=== PATIENT | female | born 1990 | race Caucasian/White ===

== ENCOUNTER 2016-12-29 09:31 | Observation (INO) ==
[2016-12-29] MEDS ORDERED: SODIUM CHLORIDE 0.9% 500 ML IV STA (11:20)
[2016-12-29 11:26] LABS: Basophils # 0.1 10*3/uL (0.0-0.2); Basophils % 0.7 % (0.0-0.8); Eosinophils # 0.1 10*3/uL (0.0-0.87); Eosinophils % 0.7 % (0.00-10.9); Hematocrit 40.1 VOL% (35.7-47.0); Hemoglobin 13.9 GM/DL (12.0-16.0); Immature Granulocytes % 0.3 %; Immature Granulocytes Absolute 0.02 #; Lymphocytes # 1.7 10*3/uL (1.4-4.0); Mean Corpuscular HGB Conc 34.7 GM/DL (32-36); Mean Corpuscular Hemoglobin 29 PG (27-34); Mean Platelet Volume 10.7 FL (9.6-12.0); Monocytes # 0.6 10*3/uL (0.11-0.8); Monocytes % 7.6 % (1.7-12.7); Neutrophils % 67.7 % (38.7-73.9); Platelet Count 263 T/CUMM (130-400); Red Blood Count 4.72 MC/CUMM (3.8-5.5); White Blood Count 7.4 T/CUMM (4-12)
[2016-12-29 11:43] LABS: Apearance,Urine Slightly Hazy (Clear); Bacteria,Urine Occasional /HPF (Few); Bilirubin,Urine Negative (Negative); Blood, Urine Negative (Negative); Glucose,Urine (UA) Negative (Negative); Hyaline Casts,Urine 1 /LPF (0-3); Ketones,Urine Negative (Negative); Mucus,Urine Few /LPF (Occasional); Nitrite,Urine Negative (Negative); Protein,Urine Negative; RBC,Urine 6 /HPF (0-4); Squamous Epithelial Cell,Urine Occasional /HPF (0-10); Urine Color Yellow (Yellow); Urine Specific Gravity 1.025 (1.001-1.035); WBC,Urine 4 /HPF (0-6)
--- NOTE | 2016-12-29 11:44 | Emergency Department Note ---
IEleuterio Emily, am scribing for, and in the presence of, Kwadwo Steel MD 11: 00. Milvia Thomas Charles R, MD, personally performed the services described in this documentation, ascribed by Luzma Mcclellan in my presence, and it is both accurate and complete . Arrival - Arrival Chief Complaint: Syncope Stated Complaint: Weakness, sweating, paleness, loss of hearing, ED Nursing Triage Note: PT C/O NEAR SYNCOPAL EPISODE. STATES BECAME WEAK, DIAPHORETIC, AND PALE WHILE TAKING A SHOWER THIS AM BUT IMPROVED AFTER EATING BREAKFAST. THEN HAPPENED AGAIN WHILE SCRUBBED IN FOR SURGERY AT APPROX 0920. ACCU CHECK AT TRIAGE 99MG/DL Mode of Arrival: Wheelchair Limitations: No Limitations Source: Patient Time Seen by Provider: 12/29/16 10:44 - History of Present Illness HPI Narrative: Pt is a 26 y/o female who came to ED with c/o 2 near syncopal episodes that started this morning. Pt reports scrubbing in for surgery this morning and felt dizziness, weakness, loss of hearing, cold sweat, and pale, but resolved on its own. She notes taking a shower this morning with the same sxs but resolved during breakfast. Pt's accu check was 99 and BP is nml. She denies any sxs at the moment, but has dizziness when standing. Onset (ago): hour(s) Consistency: intermittent Severity: mild, moderate Severity scale (1-10): 4 Quality: other (dizziness) Date of Last Menstrual Period: 12/13/16 Allergies/Adverse Reactions: Allergies Allergy/AdvReac Type Severity Reaction Status Date / Time latex Allergy RASH Verified 12/29/16 09:45 Review of System - Review of System 12 point system: reviewed and no additional remarkable complaints except as stated - Review of System Constitutional: Present: diaphoresis (with episode). Absent: chills, fever Head/Ears/Nose/Throat: Absent: nasal drainage Respiratory: Absent: cough, respiratory distress Cardiovascular: Absent: chest pain, syncope (near syncope) Gastrointestinal: Absent: abdominal pain, nausea, vomiting Skin: Absent: rash Neurological: Present: weakness, other (dizziness). Absent: numbness, paresthesias, abnormal gait (unsteady balance) Medical,Surgical,& Family Hx - Medical History Psychological: History of: Anxiety Disorders, Depression - Surgical History Surgical History: noncontributory - Family History Family History: noncontributory - Social History Smoking Status: Never smoker Frequency of Alcohol Use: None Type of Drug Use: None Marital Status: Single Lives With:: Alone Functional capacity: independent ambulation Exam Vital Signs: Vital Signs Temperature 97.4 F L 12/29/16 09:39 Pulse Rate 74 12/29/16 14:15 Respiratory Rate 16 12/29/16 14:15 Blood Pressure 107/77 12/29/16 14:15 O2 Sat by Pulse Oximetry 100 12/29/16 14:15 - General General appearance: alert, in no apparent distress - Head Head exam: Present: atraumatic, normocephalic - Eye Eye exam: Present: EOMI, nystagmus - ENT ENT exam: Present: mucous membranes moist. Absent: mucous membranes dry - Neck Neck exam: Present: full ROM - Chest Chest inspection: Present: symmetric chest wall rise - Respiratory Respiratory exam: Present: normal lung sounds bilaterally. Absent: respiratory distress - Cardiovascular Cardiovascular exam: Present: regular rate, normal rhythm, normal heart sounds - Extremities Exam Extremities exam: Present: full ROM. Absent: pedal edema - Neurological Exam Neurological exam: Present: alert, oriented X3, CN II-XII intact, other ( reproducible dizziness when standing). Absent: motor sensory deficit - Psychiatric Psychiatric exam: Present: normal affect, normal mood - Skin Skin exam: Present: warm, dry Course - Reevaluation(s) Reevaluation #1: Patient was reexamined after almost 2 L of fluid she still symptomatic will admit patient for observation Time: 14:46 - Consultations Consultation #1: Hospitalist will admit patient Time: 14:45 Results - Labs CBC & BMP: 12/29/16 10:01 12/29/16 10:01 Lab Results: I have reviewed the patients labs Labs: Laboratory Tests 12/29/16 10:01 MCV 85.0 L Laboratory Tests 12/29/16 12/29/16 12/29/16 10:01 10:01 10:01 D-Dimer, Quantitative 0.7 Urine Color Yellow Urine Appearance Slightly hazy Urine pH 5.0 Ur Specific [place] 1.025 Urine Blood Negative Urine Nitrate Negative Urine Urobilinogen 2.0 H Urine Leukocytes Moderate H Urine RBC 6 Urine WBC 4 Ur Squamous Epith Cells Occasional Urine Bacteria Occasional Hyaline Casts 1 Urine Mucus Few Urine Test Negative Laboratory Tests 12/29/16 10:01 Potassium 3.4 L Calculated Osmolality 271.0 L Globulin 3.6 H Albumin/Globulin Ratio 1.0 L Laboratory Tests 12/29/16 10:01 B-Natriuretic Peptide 15 - Diagnostic Findings Procedure: Chest x-ray: report reviewed by me (Expiratory chest with minimal atelectasis/infiltration at the lung bases. ), CT: report reviewed by me (head: No acute intracranial pathology seen.) Disposition Clinical Impression: Syncope due to orthostatic hypotension Case discussed with: patient Disposition: Disch To Home/Self Care Condition: Stable Time of Disposition: 14:47
[2016-12-29 11:47] LABS: Barbiturates Screen,Urine Negative (Negative); Benzodiazepines Screen,Urine Negative (Negative); Cannabinoid Screen,Urine Negative (Negative); Opiate Screen,Urine Negative (Negative); Phencyclidine Screen,Urine Negative (Negative)
[2016-12-29] MEDS ORDERED: SODIUM CHLORIDE 0.9% 1,000 ML IV STA (11:52)
--- NOTE | 2016-12-29 11:53 | CT Report ---
History is syncope The ventricles are normal in size. No acute intracranial hemorrhage, mass effect, or evidence of acute cortical stroke seen. Impression: No acute intracranial pathology seen. The CT exam was performed using one or more of the following dose reduction techniques: Automated exposure control, adjustment of the mA and/or kV according to patient size, or use of iterative reconstruction technique. PROCEDURE INTERPRETED AT [facility] DEPARTMENT OF RADIOLOGY Final Report Signed by: Dr. Drea Bernal
--- NOTE | 2016-12-29 12:14 | XRay Report ---
Portable chest Date: 12/29/2016 Clinical history: Shortness of breath Comparison: None Technique: Portable AP sitting chest Findings: The heart is normal in size. Expiratory chest with minimal diffuse parenchymal findings at the lung bases. Calcified granulomata/nodes with no acute osseous findings. Impression: Expiratory chest with minimal atelectasis/infiltration at the lung bases. PROCEDURE INTERPRETED AT [facility] DEPARTMENT OF RADIOLOGY Final Report Signed by: Dr. Ana Lovell
[2016-12-29 12:20] LABS: Alanine Aminotransferase 25 U/L (13-56); Albumin 3.7 G/DL (3.4-5.0); Alkaline Phosphatase 94 U/L (45-117); Aspartate Amino Transferase 13 U/L (0-37); Bilirubin,Total < 0.39 MG/DL (0.2-1.0); Blood Urea Nitrogen 13 MG/DL (7-18); Calcium 8.7 MG/DL (8.5-10.1); Glucose 91 MG/DL (74-106); Sodium 136 MMOL/L (136-145); Total Protein 7.3 G/DL (6.4-8.3)
[2016-12-29 12:21] LABS: Potassium 3.4 MMOL/L (3.5-5.1); Troponin I Only < 0.015 NG/ML (0.00-0.045)
--- NOTE | 2016-12-29 13:58 | Order Completion Report ---
See report scanned to EMR
[2016-12-29] MEDS ORDERED: ACETAMINOPHEN 325 MG TABLET PO PRN (15:46)
[2016-12-29] MEDS ORDERED: ONDANSETRON 4 MG/2 ML VIAL IV PRN (15:46)
[2016-12-29] MEDS ORDERED: ZALEPLON 5 MG CAPSULE PO PRN (15:46)
[2016-12-29] MEDS ORDERED: POTASSIUM CHLORIDE 20 MEQ TABLET PO ONE (15:48)
[2016-12-29] MEDS ORDERED: ALPRAZolam 0.5 MG TABLET PO PRN (15:49)
--- NOTE | 2016-12-29 15:54 | Hospitalist History & Physical ---
Assessment and Plan (1) Near syncope Status: Acute Assessment and plan: Most likely vasovagal exacerbated by overmedication. Current Visit: Yes (2) Hypokalemia Status: Acute Assessment and plan: Replace and recheck in a.m. Current Visit: Yes (3) Depression Status: Acute Assessment and plan: Continue Risperdal and Xanax, hold Trileptal Current Visit: Yes (4) Anxiety Status: Acute Assessment and plan: Continue Xanax Current Visit: Yes (5) Obstructive sleep apnea Status: Acute Assessment and plan: morning fatigue, obesity, large breasts, small jaw, headache, Dr. Wiggins to see Current Visit: Yes History of Present Illness Chief complaint: near syncope History of present illness: Ms. Barragan is a 26 year old female with history of depression and anxiety and and sees a nurse practitioner from [place]. Patient reports to near-syncope of events. 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 twice daily. She also takes Xanax 0.5 mg and Risperdal 1.5 mg for depression and anxiety. She was waking up in the middle of night with panic attacks and that is why she is on Risperdal. Patient patient is morbidly obese and has all the symptoms including morning fatigue and headaches consistent with sleep apnea. She said she has had a sleep test before and it was equivocal. She has very large breasts and a very small jaw and sleep apnea runs in the family. Patient was given 2 L of fluid but still feels wobbly on her feet it is most likely due to overmedication. Allergies Allergy/AdvReac Type Severity Reaction Status Date / Time latex Allergy RASH Verified 12/29/16 09:45 Medical,Surgical,& Family Hx - Medical History Psychological: History of: Anxiety Disorders, Depression - Surgical History Additional Surgical History: Gill teeth removed, vaginal delivery - Family History Family History: Reports;: Family Diabetes Denies;: Family Cancer, Family Heart Disease, Family Stroke - Social History Smoking Status: Never smoker Frequency of Alcohol Use: None Type of Drug Use: None Marital Status: Single Lives With:: Alone Functional capacity: independent ambulation - Constitutional Constitutional: Present: daytime sleepiness, fatigue, headache(s) - EENT Eyes: Absent: blurry vision, diplopia Ears: Absent: decreased hearing, ear discharge Nose, mouth and throat: Present: headache(s), sore throat - Cardiovascular Cardiovascular: Absent: chest pain at rest, dyspnea, dyspnea on exertion - Respiratory Respiratory: Present: snoring. Absent: dyspnea, dyspnea on exertion - Gastrointestinal Gastrointestinal: Present: nausea. Absent: constipation, diarrhea, vomiting - Genitourinary Genitourinary: Absent: difficulty urinating, dysuria - Neurological Neurological: Present: headache(s), syncope (Near syncope). Absent: confusion, convulsions - Psychiatric Psychiatric: Present: anxiety, depression - Endocrine Endocrine: Present: fatigue. Absent: cold intolerance, heat intolerance - Hematologic/Lymphatic Hematologic/Lymphatic: Absent: easy bleeding, easy bruising Exam - Constitutional Vitals: Period Temp Pulse Resp BP Sys/Parra Pulse Ox Last 24 Hr 97.4 F 70-87 16-16 87-113/56-82 96-100 General appearance: no acute distress, morbidly obese - Head Head exam: Present: normal inspection, normocephalic - Eye Eye exam: Present: EOMI. Absent: scleral icterus Pupils: Present: FREIDA, normal accommodation - ENT ENT exam: Present: normal exam, normal external ear exam - Neck Neck exam: Absent: lymphadenopathy, thyromegaly - Respiratory Respiratory exam: Present: clear to auscultation bilaterally - Cardiovascular Cardiovascular exam: Present: regular rate and rhythm. Absent: systolic murmur - GI/Abdominal GI/Abdominal exam: Present: normal bowel sounds, soft. Absent: tenderness - Extremities Exam Extremities exam: Present: normal inspection, normal capillary refill - Neurological Exam Neurological exam: Present: alert, oriented X3, CN II-XII intact, reflexes normal. Absent: motor sensory deficit - Psychiatric Psychiatric exam: Present: normal affect, normal mood - Skin Skin exam: Present: normal color, warm Results - Labs CBC & BMP: 12/29/16 10:01 12/29/16 10:01 Lab Results: I have reviewed the past 24 hour labs - EKG EKG shows: sinus rhythm - Diagnostic Findings Procedure: Chest x-ray: report reviewed by me (Negative), CT: report reviewed by me (Head CT negative)
[2016-12-29] MEDS: SODIUM CHLORIDE 0.9% 1,000 ML IV SCH ×2 (17:02→23:44)
[2016-12-29] MEDS ORDERED: risperiDONE 1 MG TABLET PO SCH (21:00)
[2016-12-30] MEDS: SODIUM CHLORIDE 0.9% 1,000 ML IV SCH (06:49)
[2016-12-30 08:58] VITALS: BP 108/58
[2016-12-30] MEDS ORDERED: PANTOPRAZOLE 40 MG TABLET PO SCH (09:00)
[2016-12-30 09:19] LABS: Calcium 8.8 MG/DL (8.5-10.1); Potassium 3.9 MMOL/L (3.5-5.1)
--- NOTE | 2016-12-30 11:12 | Discharge Summary ---
Hospital Course - Hospital Course Hospital Course: Ms. Barragan is a 26 year old female with history of depression and anxiety and and sees a nurse practitioner from [place]. Patient reports to near-syncope of events times 2. She is taking too many meds. Recent addition was trileptal 150 mg po bid. Patient aggressively rehydrated and hypotension resolved. I am concerned that she will continue to have these events due to medication side effects and encouraged her to cut down. She needs to see her nurse practitioner about reducing her Trileptal. Patient also had low potassium and was replaced. Patient has all the symptoms of obstructive sleep apnea. She says she has had a sleep study before that was negative. Encouraged her to see Dr. Wiggins again because I think she needs an HST at home. Follow-up with her primary care doctor and her nurse practitioner from [place]. - Time spent with patient Time with patient DS: Less than 30 minutes (25 min) Diagnosis - Discharge Diagnosis (1) Near syncope Status: Acute (2) Hypokalemia Status: Acute (3) Depression Status: Acute (4) Anxiety Status: Acute (5) Obstructive sleep apnea Status: Acute Discharge Plan - Discharge Data Disposition: Disch To Home/Self Care Condition at Discharge: Stable Discharge Diet: regular diet Activity: resume usual activities as tolerated Hygiene: no restrictions Weight Bearing at Discharge: full weight bearing Driving: no restrictions Contact your physician if you experience:: fever over 101 - Discharge Medications Continue ALPRAZolam [Xanax] 0.5 tablet PO DIRECTED PRN PRN Reason: Anxiety Pantoprazole Tab [Protonix Tab] 40 mg PO BID risperiDONE TAB [RisperDAL TAB] 1.5 mg PO DAILY Dicyclomine Cap/Tab [Bentyl Cap/Tab] 10 mg PO DIRECTED Changed OXcarbazepine [Trileptal] 75 mg PO BID #0 - Follow Up or Referral Follow Up: dr garrett [Other] - 1 Week Mayra Wiggins MD [Physician] - 2 Weeks lillie cardenas [Other] - 1 Week - Forms/Instructions Additional Discharge Instructions: return to work on Exam - Constitutional Vitals: Period Temp Pulse Resp BP Sys/Parra Pulse Ox Last 24 Hr 97.6 F-98.3 F 68-102 16-20 89-109/50-79 96-100 General appearance: no acute distress, morbidly obese - Cardiovascular Cardiovascular exam: Present: regular rate and rhythm. Absent: systolic murmur - GI/Abdominal GI/Abdominal exam: Present: normal bowel sounds, soft. Absent: tenderness - Extremities Exam Extremities exam: Present: normal inspection, normal capillary refill - Neurological Exam Neurological exam: Present: alert, oriented X3 - Psychiatric Psychiatric exam: Present: normal affect, normal mood Discharge Results Procedures and tests throughout hospitalization: Pending Orders 12/29/16 Urine Culture Routine Labs on day of discharge: Labs from last 24 hours 12/30/16 12/29/16 12/29/16 08:31 10:01 10:01 WBC RBC Hgb Hct MCV MCH MCHC RDW Plt Count MPV Neut % (Auto) Lymph % (Auto) [place] % (Auto) Eos % (Auto) Baso % (Auto) Neut # (Auto) Lymph # (Auto) [place] # (Auto) Eos # (Auto) Baso # (Auto) Immature Gran % Nucleated RBC % Immature Gran # Nucleated RBCs # Immature Plt Fraction D-Dimer, Quantitative Sodium 143 Potassium 3.9 Chloride 107 Carbon Dioxide 27 Anion Gap 12.9 BUN 7 Creatinine 0.80 GFR Calculation 123 BUN/Creatinine Ratio 8.00 Glucose 107 H POC Glucose Calculated Osmolality 282.0 Calcium 8.8 Magnesium Total Bilirubin AST ALT Alkaline Phosphatase Troponin I B-Natriuretic Peptide Total Protein Albumin Globulin Albumin/Globulin Ratio Free T4 1.35 TSH 3rd Generation 3.100 Urine Color Urine Appearance Urine pH Ur Specific [place] Urine Protein Urine Glucose (UA) Urine Ketones Urine Blood Urine Nitrate Urine Bilirubin Urine Urobilinogen Urine Leukocytes Urine RBC Urine WBC Ur Squamous Epith Cells Urine Bacteria Hyaline Casts Urine Mucus Ur Culture Indicated? Urine Test Urine Opiates Screen Ur Barbiturates Screen Ur Phencyclidine Scrn U Amphetamine/Methamph U Benzodiazepines Scrn U Cocaine Metab Screen U Cannabinoids Screen 12/29/16 12/29/16 12/29/16 10:01 10:01 10:01 WBC RBC Hgb Hct MCV MCH MCHC RDW Plt Count MPV Neut % (Auto) Lymph % (Auto) [place] % (Auto) Eos % (Auto) Baso % (Auto) Neut # (Auto) Lymph # (Auto) [place] # (Auto) Eos # (Auto) Baso # (Auto) Immature Gran % Nucleated RBC % Immature Gran # Nucleated RBCs # Immature Plt Fraction D-Dimer, Quantitative Sodium Potassium Chloride Carbon Dioxide Anion Gap BUN Creatinine GFR Calculation BUN/Creatinine Ratio Glucose POC Glucose Calculated Osmolality Calcium Magnesium Total Bilirubin AST ALT Alkaline Phosphatase Troponin I B-Natriuretic Peptide Total Protein Albumin Globulin Albumin/Globulin Ratio Free T4 TSH 3rd Generation Urine Color Yellow Urine Appearance Slightly hazy Urine pH 5.0 Ur Specific [place] 1.025 Urine Protein Negative Urine Glucose (UA) Negative Urine Ketones Negative Urine Blood Negative Urine Nitrate Negative Urine Bilirubin Negative Urine Urobilinogen 2.0 H Urine Leukocytes Moderate H Urine RBC 6 Urine WBC 4 Ur Squamous Epith Cells Occasional Urine Bacteria Occasional Hyaline Casts 1 Urine Mucus Few Ur Culture Indicated? Results to follow Urine Test Negative Urine Opiates Screen Negative Ur Barbiturates Screen Negative Ur Phencyclidine Scrn Negative U Amphetamine/Methamph Negative U Benzodiazepines Scrn Negative U Cocaine Metab Screen Negative U Cannabinoids Screen Negative 12/29/16 12/29/16 12/29/16 10:01 10:01 10:01 WBC RBC Hgb Hct MCV MCH MCHC RDW Plt Count MPV Neut % (Auto) Lymph % (Auto) [place] % (Auto) Eos % (Auto) Baso % (Auto) Neut # (Auto) Lymph # (Auto) [place] # (Auto) Eos # (Auto) Baso # (Auto) Immature Gran % Nucleated RBC % Immature Gran # Nucleated RBCs # Immature Plt Fraction D-Dimer, Quantitative 0.7 Sodium 136 Potassium 3.4 L Chloride 100 Carbon Dioxide 29 Anion Gap 10.4 BUN 13 Creatinine 0.80 GFR Calculation 123 BUN/Creatinine Ratio 16.00 Glucose 91 POC Glucose Calculated Osmolality 271.0 L Calcium 8.7 Magnesium 2.0 Total Bilirubin < 0.39 AST 13 ALT 25 Alkaline Phosphatase 94 Troponin I < 0.015 B-Natriuretic Peptide 15 Total Protein 7.3 Albumin 3.7 Globulin 3.6 H Albumin/Globulin Ratio 1.0 L Free T4 TSH 3rd Generation Urine Color Urine Appearance Urine pH Ur Specific [place] Urine Protein Urine Glucose (UA) Urine Ketones Urine Blood Urine Nitrate Urine Bilirubin Urine Urobilinogen Urine Leukocytes Urine RBC Urine WBC Ur Squamous Epith Cells Urine Bacteria Hyaline Casts Urine Mucus Ur Culture Indicated? Urine Test Urine Opiates Screen Ur Barbiturates Screen Ur Phencyclidine Scrn U Amphetamine/Methamph U Benzodiazepines Scrn U Cocaine Metab Screen U Cannabinoids Screen 12/29/16 12/29/16 10:01 09:45 WBC 7.4 RBC 4.72 Hgb 13.9 Hct 40.1 MCV 85.0 L MCH 29 MCHC 34.7 RDW 12.0 Plt Count 263 MPV 10.7 Neut % (Auto) 67.7 Lymph % (Auto) 23.0 [place] % (Auto) 7.6 Eos % (Auto) 0.7 Baso % (Auto) 0.7 Neut # (Auto) 5.0 Lymph # (Auto) 1.7 [place] # (Auto) 0.6 Eos # (Auto) 0.1 Baso # (Auto) 0.1 Immature Gran % 0.3 Nucleated RBC % 0.0 Immature Gran # 0.02 Nucleated RBCs # 0.00 Immature Plt Fraction 0.0 D-Dimer, Quantitative Sodium Potassium Chloride Carbon Dioxide Anion Gap BUN Creatinine GFR Calculation BUN/Creatinine Ratio Glucose POC Glucose 99 Calculated Osmolality Calcium Magnesium Total Bilirubin AST ALT Alkaline Phosphatase Troponin I B-Natriuretic Peptide Total Protein Albumin Globulin Albumin/Globulin Ratio Free T4 TSH 3rd Generation Urine Color Urine Appearance Urine pH Ur Specific [place] Urine Protein Urine Glucose (UA) Urine Ketones Urine Blood Urine Nitrate Urine Bilirubin Urine Urobilinogen Urine Leukocytes Urine RBC Urine WBC Ur Squamous Epith Cells Urine Bacteria Hyaline Casts Urine Mucus Ur Culture Indicated? Urine Test Urine Opiates Screen Ur Barbiturates Screen Ur Phencyclidine Scrn U Amphetamine/Methamph U Benzodiazepines Scrn U Cocaine Metab Screen U Cannabinoids Screen DS: Provider Date of admission: 12/29/16 14:51 Primary care physician: . No PCP Attending physician on admission: Argenis Ferguson MD Consults: 12/29/16 15:46 Consult to Sleep Center [CONS] Routine Reason for Sleep Center: Sleep Center Physician Consult Comment: holly Discharging clinician: Argenis Ferguson MD
== END 2016-12-30 13:45 | disposition home or self-care (01) ==
LOC: N.EDINP 09:31 → N.ED 09:31 → N.EDINP 15:52 → N.4E 15:58
PROVIDERS: ADMIT Internal Medicine; ATTEND Internal Medicine